=== PATIENT | male | born 2000 ===

== ENCOUNTER 2022-02-10 08:46 | Emergency (ER) | payer BC ==
[2022-02-10 09:32] LABS: Amphetamine Screen,Urine Negative; Benzodiazepines Screen,Urine Negative; Cannabinoid Screen,Urine Negative; Cocaine Screen,Urine Negative; Methadone Screen,Urine Negative; Opiate Screen,Urine Negative
[2022-02-10 10:06] LABS: RBC,Urine < 1.0 /HPF (0.0-6.0)
[2022-02-10 10:10] LABS: Color,Urine Colorless (Yellow); WBC,Urine < 1.0 /HPF (0.0-6.0)
--- NOTE | 2022-02-10 10:31 | Consultation ---
History of Present Illness - Reason for Consult Consult date: 02/10/22 Reason for consult: SI, alcohol - History of Present Psychiatric Illness HPI: First contact with patient, patient present to ED d/t SI and ETOH. Patient currently in bed officers at bedside. Patient verbally inappropriate but able to be re directed. EMT Thai at bedside to monitor patient. Patient will cont to be observed by staff. Unable to assess the patient. He arouses slightly but continuously drifts off to sleep. Will 1013 and recommend inpatient psychiatric treatment based on nurses documented presentation of suicidal ideation. PAST PSYCHIATRIC HISTORY: Unable to assess PAST MEDICAL HISTORY: None reported Family Psychiatric History: None reported or documented SOCIAL HISTORY Unable to assess REVIEW OF SYSTEMS Unable to assess MENTAL STATUS EXAMINATION Unable to assess Diagnoses: Altered Mental Status r/o Alcohol Intoxication Treatment Plan 1013 Will hold medications until able to sufficiently evaluate the patient Medical: per primary Disposition: Recommend acute psychiatric inpatient treatment Will follow. Thanks Case staffed with Dr. Cowart Medications and Allergies Allergies Allergy/AdvReac Type Severity Reaction Status Date / Time No Known Allergies Allergy Unverified 02/10/22 09:05 Home Medications Medication Instructions Recorded Confirmed Last Taken Type Quetiapine Fumarate [SEROquel] 50 mg PO HS 02/10/22 02/10/22 02/10/22 08:00 History Mental Status Exam - Vital signs Last Vital Signs Temp Pulse Resp BP 155/75 02/10/22 09:17 Pulse Ox 98 02/10/22 09:17 Results Result Diagrams: 02/10/22 09:36 Abnormal lab results 02/10/22 Range/Units 09:36 Acetaminophen 5.0 L (10.0-30.0) ug/mL All other labs normal.
[2022-02-10 10:32] LABS: Alanine Aminotransferase 25 units/L (7-56); Albumin 5.1 g/dL (3.9-5); BUN/Creatinine Ratio 10; Blood Urea Nitrogen 9 mg/dL (9-20); Calcium 9.3 mg/dL (8.4-10.2); Hemolysis Index 6
[2022-02-10 10:40] LABS: Basophils % (Auto) 0.3 % (0.0-1.8); Hematocrit 39.3 % (35.5-45.6); Hemoglobin 13.3 gm/dl (11.8-15.2); Lymphocytes # (Auto) 1.1 K/mm3 (1.2-5.4); Lymphocytes % (Auto) 15.9 % (13.4-35.0); Mean Corpuscular HGB Conc 34 % (32-34); Mean Corpuscular Volume 84 fl (84-94); Monocytes # (Auto) 0.3 K/mm3 (0.0-0.8); Monocytes % (Auto) 4.9 % (0.0-7.3); Platelet Count 205 K/mm3 (140-440); Red Blood Count 4.69 M/mm3 (3.65-5.03); Red Cell Distribution Width 12.1 % (13.2-15.2)
[2022-02-10 17:47] VITALS: BP 148/72
--- NOTE | 2022-02-11 06:20 | Emergency Department Report ---
ED Psych HPI - General Chief Complaint: Psych Stated Complaint: PSYCH Time Seen by Provider: 02/10/22 09:06 Source: patient, police Mode of arrival: Ambulatory - History of Present Illness Initial Comments: Patient is a 38-year-old male brought in by police for suicidal ideations. He appears intoxicated. - Related Data Home Medications Medication Instructions Recorded Confirmed Last Taken Quetiapine Fumarate [SEROquel] 50 mg PO HS 02/10/22 02/10/22 02/10/22 08:00 Allergies Allergy/AdvReac Type Severity Reaction Status Date / Time No Known Allergies Allergy Unverified 02/10/22 09:05 ED Review of Systems ROS: Stated complaint: PSYCH Other details as noted in HPI Comment: Unobtainable due to pts medical conditions ED Past Medical Hx - Medications Home Medications: Home Medications Medication Instructions Recorded Confirmed Last Taken Type Quetiapine Fumarate [SEROquel] 50 mg PO HS 02/10/22 02/10/22 02/10/22 08:00 History ED Physical Exam - General Limitations: Altered Mental Status General appearance: appears intoxicated - Head Head exam: Present: atraumatic, normocephalic - Respiratory Respiratory exam: Present: normal lung sounds bilaterally. Absent: respiratory distress - Cardiovascular Cardiovascular Exam: Present: regular rate, normal rhythm, normal heart sounds - GI/Abdominal GI/Abdominal exam: Present: soft. Absent: distended - Rectal Rectal exam: Present: deferred - Neurological Exam Neurological exam: Present: altered - Skin Skin exam: Present: warm, dry, intact, normal color ED Course Vital Signs 02/10/22 02/10/22 02/10/22 09:17 17:44 17:46 Pulse Rate 92 H Respiratory 19 Rate Blood Pressure 155/75 148/72 [Left] O2 Sat by Pulse 98 100 100 Oximetry ED Medical Decision Making - Lab Data Result diagrams: 02/10/22 09:36 02/10/22 09:36 - Medical Decision Making Labs grossly unremarkable except for serum alcohol of 0.15. 1013 filed. Unable to medically clear until sober. Critical care attestation.: If time is entered above; I have spent that time in minutes in the direct care of this critically ill patient, excluding procedure time. ED Disposition Clinical Impression: Alcohol intoxication, Suicidal ideation Disposition: 30 STILL A PATIENT Is pt being admited?: No Condition: Stable
== END 2022-02-10 19:00 ==
LOC: ED 08:46
DX: R45.851 Suicidal ideations (principal); F10.129 Alcohol abuse with intoxication, unspecified; Z20.822 Contact with and (suspected) exposure to COVID-19
CPT/HCPCS: 36415; 80053; 80307; 81001; 84443; 85025; 99285; U0003; 80320; G0480